=== PATIENT | female | born 1970 | race Caucasian/White ===

== ENCOUNTER → 2019-07-04 | Outpatient (CLI) | payer OTHER ==
--- NOTE | 2019-07-05 10:39 | XCELERA REPORT ---
[address] [address] Lower Extremity Arterial Evaluation Name: NEGRITO RODRIGUEZ Age: 49 yrs Gender: Female : 1970 Patient Status: Preadmit Patient Location: Study Date: 07/04/2019 01:19 PM Procedure: A color flow and duplex scan of the lower extremity arteries was performed bilaterally with velocity and waveform anaylsis. Reason For Study: PAIN IN RIGHT LEG Ordering Physician: DAKOTA BARBOSA Performed By: Diana Soto Measurements and Calculations Right Left CORN HUSKER PSV 116.3 125.7 cm/sec Prox PFA PSV -64.8 -58.1 cm/sec Prox SFA PSV 97.2 76.4 cm/sec Mid SFA PSV -94.3 -85.6 cm/sec Dist SFA PSV -91.8 -79.5 cm/sec Prox Pop A PSV -42.8 cm/sec Dist Pop A PSV -51.9 cm/sec Mid PRISCILLA PSV 30.4 50.6 cm/sec Mid LEAD CARGOMAN PSV 39.3 64.2 cm/sec Olayinka Pedis PSV 33.9 31.2 cm/sec Right Side Arterial Evaluation Normal velocity and triphasic waveforms noted from the Common Femoral artery to the infrageniculate vessels . Biphasic with normal velocity, no spectral broadening in the Dorsalis Pedis arteries. Ankle Brachial index not ordered . Left Side Arterial Evaluation Normal velocity and triphasic waveforms noted from the Common Femoral artery to the infrageniculate vessels . Biphasic with normal velocity, no spectral broadening in the Dorsalis Pedis arteries. Ankle Brachial index not ordered . Interpretation Summary Mild hemodynamically significant lesions in the bilateral lower extremities, on duplex imaging, at rest. : DAKOTA BARBOSA > Nirav Kingston
== END ==
LOC: SP 12:31
PROVIDERS: ATTEND Nurse Practitioner Family
DX: R09.89 Other specified symptoms and signs involving the circulatory and respiratory systems (principal); M79.604 Pain in right leg
CPT/HCPCS: 93925